=== PATIENT | male | born 1955 | race Asian ===

== ENCOUNTER 2021-02-24 18:29 | Emergency (ER) | payer OTHER ==
[~2021-02-24] VITALS: Ht 170.2 cm; Wt 72.6 kg
[2021-02-24 19:01] LABS: PLATELET COUNT 315 K/uL (142-355)
[2021-02-24 19:11] LABS: POTASSIUM 3.8 mmol/L (3.6-5.2)
[2021-02-24 21:40] VITALS: BP 142/86; TEMP 98.5
[2021-02-24] MEDS ORDERED: AMLODIPINE BESYLATE PO (22:24)
[2021-02-24] MEDS ORDERED: ACID CONTROL20 MG PO (22:25)
[2021-02-24] MEDS ORDERED: FINASTERIDE5 MG PO (22:26)
[2021-02-24] MEDS ORDERED: KP FOLIC ACID1 MG PO (22:27)
[2021-02-24] MEDS ORDERED: LACTULOSE10 GM/15 M PO (22:28)
[2021-02-24] MEDS ORDERED: SPRITAM500 MG PO (22:29)
[2021-02-24] MEDS ORDERED: MELATONIN10 M1 PO (22:30)
[2021-02-24] MEDS ORDERED: METOPROLOL25 M1 PO (22:31)
[2021-02-24] MEDS ORDERED: CVS NICOTI21 MG/24 H TD (22:33)
[2021-02-24] MEDS ORDERED: POTASSIUM CL 10% PO (22:38)
[2021-02-24] MEDS ORDERED: TAMSULOSIN0.4 MG PO (22:39)
[2021-02-24] MEDS ORDERED: VITAMIN B1100 M1 PO (22:40)
[2021-02-24] MEDS ORDERED: FLEET ENEMA RE (22:43)
[2021-02-24] MEDS ORDERED: BISACODYL LAXAT10 MG RE (22:46)
[2021-02-24] MEDS ORDERED: MAGNSUS68 PO (22:49)
[2021-02-24] MEDS ORDERED: HYDRALAZINE25 MG PO (22:51)
== END 2021-02-24 21:40 | disposition still patient (30) ==
LOC: ED 18:29
PROVIDERS: Emergency Medicine Emergency Medical Services
DX: R46.89 Other symptoms and signs involving appearance and behavior (principal); S00.81XA Abrasion of other part of head, initial encounter; R44.2 Other hallucinations; Z11.52 Encounter for screening for COVID-19; Z04.6 Encounter for general psychiatric examination, requested by authority; W06.XXXA Fall from bed, initial encounter; Y92.238 Other place in hospital as the place of occurrence of the external cause
CPT/HCPCS: 36415; 80053; 85027; 87635; 93005; 99283; U0003